=== PATIENT | male | born 1945 | race Caucasian/White ===

== ENCOUNTER 2018-09-28 10:01 | Day surgery (SDC) | payer OTHER ==
[2018-09-28] VITALS (33 sets, daily range): BP systolic 82–124; BP diastolic 47–68; PULSE 63–88; RESP 11–24
[~2018-09-28] VITALS: Ht 182.9 cm; Wt 114.7 kg
[2018-09-28] MEDS ORDERED: CARV25TA97 PO (10:42)
[2018-09-28] MEDS ORDERED: CHOL100062 PO (10:42)
[2018-09-28] MEDS ORDERED: LINA1TAB PO (10:42)
[2018-09-28] MEDS ORDERED: CITRACAL PO (10:42)
[2018-09-28] MEDS ORDERED: ROSU20TA PO (10:42)
[2018-09-28] MEDS ORDERED: CAND4TAB3 ORAL (10:42)
[2018-09-28] MEDS ORDERED: EZET10TA31 PO (10:42)
[2018-09-28] MEDS ORDERED: ASPI-903 PO (10:43)
[2018-09-28] MEDS ORDERED: UBID100C44 PO (10:43)
[2018-09-28] MEDS ORDERED: LIDOCAINE 1% (MDV) 20 ML INJ ONE (14:00)
[2018-09-28] MEDS ORDERED: IODIXANOL LOCM 100 ML BTL ONE (14:00)
[2018-09-28] MEDS ORDERED: NITROGLYCERIN (IC) 100 MCG/ML INJ ONE (14:00)
[2018-09-28] MEDS ORDERED: HEPARIN 1000 UNITS/ML 10 ML INJ ONE (14:00)
[2018-09-28] MEDS ORDERED: VERAPAMIL 5 MG INJ ONE (14:00)
[2018-09-28] MEDS ORDERED: MIDAZOLAM 1 MG/ML 2 ML INJ ONE (14:08)
[2018-09-28] MEDS ORDERED: FENTAnyl 50 MCG/ML VIAL ONE (14:08)
[2018-09-28] MEDS ORDERED: SOD CHLORIDE 0.9% 1,000 ML IV SCH (14:51)
--- NOTE | 2018-09-28 14:55 | OPR ---
Date/Time of Note Date/Time of Note DATE: 09/28/18 TIME: 14:52 Operative Report Procedure Date: Sep 28, 2018 Preoperative Diagnosis Cardiomyopathy Postoperative Diagnosis Minimal epicardial coronary artery disease Operation/Procedure Performed Left heart catheterization Right and left coronary angiogram Interpretation and supervision of right and left coronary angiogram Left ventricular pressure measurements Left radial artery approach Conscious sedation Surgeon see signature line [employer] staff Anesthesia Type: MAC Estimated Blood Loss: minimal Transfusion none Specimen None Grafts/Implants none Complications none Procedure Description Findings Hemodynamics LV pressure 111, EDP 15 Aortic pressure 110/55 Coronary findings Left main is a large caliber vessel with no significant disease LAD is a medium caliber vessel with no significant disease Ramus intermedius is a medium caliber vessel with no significant disease Circumflex is a medium caliber vessel with no significant disease RCA is a large caliber vessel and dominant with no significant disease Description of procedure Patient brought to the [facility] after informed consent. Patient prepped and draped as per protocol. Left radial artery access was obtained and a 5/6 Estonian sheath was placed. A 5 Estonian JL 3.5 diagnostic catheter was used to do an angiogram of the left system. We next used a 5 Estonian JR4 diagnostic catheter and angiogram of the RCA was performed, as well as entering the left ventricle and pressure measurements were obtained as well as pullback. There was no immediate complications. Conclusions Minimal nonobstructive epicardial coronary artery disease. Medical management. Jorge Hernández DO Sep 28, 2018 14:55
--- NOTE | 2018-09-28 16:27 | PDOCDIS ---
Discharge Instructions CONDITION [id number] Patient Condition: [id number] Good HOME CARE INSTRUCTIONS: [id number] Diet Instructions: [id number] Regular ACTIVITY: [id number] Activity Restrictions: [id number] Slowly Increase Activity Do not Drive (For 1 day) OTHER ORDERS: Other Orders: Hold metformin/Janumet until October 01 Jorge Hernández DO Sep 28, 2018 16:27
--- NOTE | 2018-09-28 18:51 | RADRPT ---
Vent Rate: 77 bpm RR Interval: 0 msec MN Interval: 230 msec QRS Duration: 114 msec QT Interval: 416 msec QTC Interval: 470 msec P-R-T [place]ill: 56 - -26 - 35 degrees Sinus rhythm with 1st degree AV block with occasional premature ventricular complexes Abnormal ECG Electronically Signed By: Kelby Henriquez
== END 2018-09-28 18:44 | disposition home or self-care (01) ==
LOC: SDS 10:01
PROVIDERS: ATTEND Internal Medicine Cardiovascular Disease
DX: I25.10 Atherosclerotic heart disease of native coronary artery without angina pectoris (principal); E78.5 Hyperlipidemia, unspecified; E11.9 Type 2 diabetes mellitus without complications; I10 Essential (primary) hypertension; I42.9 Cardiomyopathy, unspecified
CPT/HCPCS: 80048; 82962; 85025; 85610; 85730; 93005; 93458; C1887; J1644; J2250; J3010; Q9967